=== PATIENT | male | born 1980 | race Caucasian/White ===

== ENCOUNTER 2016-10-01 02:32 | Emergency (ER) | payer MEDICAID ==
[~2016-10-01] VITALS: Ht 188 cm; Wt 84.9 kg
[2016-10-01 02:33] VITALS: BP 123/65
[2016-10-01] MEDS ORDERED: LIDOCAINE 1%, 20ML ONE (03:04)
[2016-10-01] MEDS ORDERED: LIDOCAINE 1%, 20ML SQ ONE (04:00)
== END 2016-10-01 04:20 | disposition home or self-care (01) ==
LOC: ED 03:44
DX: L02.31 Cutaneous abscess of buttock (principal)
CPT/HCPCS: 10061

== ENCOUNTER 2016-12-17 03:10 | Emergency (ER) | payer MEDICAID ==
[~2016-12-17] VITALS: Ht 188 cm; Wt 87.1 kg
[2016-12-17 03:10] VITALS: BP 115/73
[2016-12-17] MEDS ORDERED: LIDOCAINE 1%, 20ML INFIL ONE (03:30)
[2016-12-17] MEDS ORDERED: LIDOCAINE 1%, 20ML ONE (04:05)
== END 2016-12-17 04:38 | disposition home or self-care (01) ==
LOC: ED 03:40
DX: L03.312 Cellulitis of back [any part except buttock and flank] (principal); L03.116 Cellulitis of left lower limb; L02.416 Cutaneous abscess of left lower limb; L02.212 Cutaneous abscess of back [any part, except buttock and flank]; Z87.891 Personal history of nicotine dependence
CPT/HCPCS: 10060

== ENCOUNTER 2016-12-25 13:03 | Emergency (ER) | payer MEDICAID ==
[~2016-12-25] VITALS: Ht 188 cm; Wt 80.0 kg
[2016-12-25] MEDS ORDERED: BACITRACIN ZINC OINT 500U/GM, 0.9 GM ONE (14:07)
[2016-12-25 15:28] VITALS: BP 104/65
== END 2016-12-25 15:30 | disposition home or self-care (01) ==
LOC: ED 13:22
DX: L01.01 Non-bullous impetigo (principal); L02.31 Cutaneous abscess of buttock; L05.01 Pilonidal cyst with abscess; Z59.0 Homelessness; F17.200 Nicotine dependence, unspecified, uncomplicated
CPT/HCPCS: 99283

== ENCOUNTER 2017-05-13 09:29 | Emergency (ER) | payer MEDICAID ==
[~2017-05-13] VITALS: Ht 188 cm; Wt 89.6 kg
[2017-05-13 09:42] VITALS: BP 125/75
[2017-05-13] MEDS ORDERED: LIDOCAINE-MPF 1%, 5ML INFIL ONE (10:30)
== END 2017-05-13 11:04 | disposition home or self-care (01) ==
LOC: ED 10:55
DX: L02.212 Cutaneous abscess of back [any part, except buttock and flank] (principal)
CPT/HCPCS: 10060; 99283

== ENCOUNTER 2018-09-03 22:31 | Emergency (ER) | payer MEDICAID ==
[~2018-09-03] VITALS: Ht 188 cm; Wt 88.2 kg
[2018-09-03 22:38] VITALS: BP 122/74
[2018-09-03] MEDS ORDERED: LIDOCAINE 1%, 10ML INFIL ONE (23:30)
[2018-09-03] MEDS ORDERED: DIPH,PERTUSS(ACELL),TET VAC/PF 0.5 ML IM-VACC ONE (23:30)
--- NOTE | 2018-09-04 | NUR ---
R HAND DOG BITE SUTURED BY LILI MCLEOD. DRESSING APPLIED. TDAP GIVEN.
== END 2018-09-04 00:18 | disposition home or self-care (01) ==
LOC: ED 23:34
DX: S61.411A Laceration without foreign body of right hand, initial encounter (principal); W54.0XXA Bitten by dog, initial encounter; Y93.89 Activity, other specified; Y92.009 Unspecified place in unspecified non-institutional (private) residence as the place of occurrence of the external cause; Y99.8 Other external cause status
CPT/HCPCS: 12042; 73130; 90471; 90715; 99284; J3490

== ENCOUNTER 2018-10-05 16:04 | Emergency (ER) | payer MEDICAID ==
[~2018-10-05] VITALS: Ht 188 cm; Wt 87.0 kg
[2018-10-05 16:09] VITALS: BP 120/68
== END 2018-10-05 17:03 | disposition home or self-care (01) ==
LOC: ED 17:01
DX: M25.522 Pain in left elbow (principal)
CPT/HCPCS: 29105; 73080; 96372; 99283; J1885

== ENCOUNTER 2020-04-06 23:27 | Emergency (ER) | payer MEDICAID ==
[~2020-04-06] VITALS: Ht 188 cm; Wt 91.0 kg
--- NOTE | 2020-04-06 23:56 | NUR ---
pt came into ed tonight due to dental pain and swelling of cheek on the left lower cheek. area is noticably swollen, pt denies trauma or vision involvement. resting in gurney, bed in lowest, rails engaged, call light on lap, provided warm blankets for comfort, nad wctm.
[2020-04-07] MEDS ORDERED: AMOXICILLIN 500 MG CAPSULE PO STA (00:27)
[2020-04-07] MEDS ORDERED: OXYcodone/APAP 5/325MG TABLET PO ONE (00:30)
[2020-04-07] MEDS ORDERED: AMOXICILLIN 500 MG CAPSULE ONE (00:47)
[2020-04-07] MEDS ORDERED: OXYcodone/APAP 5/325MG TABLET ONE (00:47)
[2020-04-07] MEDS ORDERED: LIDOCAINE-MPF 1%, 2ML ONE (00:51)
[2020-04-07] MEDS ORDERED: LIDOCAINE 1%, 2ML INFIL ONE (01:00)
--- NOTE | 2020-04-07 01:00 | NUR ---
late entry d/t pt care: pt medicated per mar, nad, no change in condition, denies additional needs at this time, bed in lowest, rails engaged, call light on lap, wctm.
[2020-04-07 01:22] VITALS: BP 115/84
== END 2020-04-07 01:34 | disposition home or self-care (01) ==
LOC: ED 23:45
DX: K04.7 Periapical abscess without sinus (principal); M79.89 Other specified soft tissue disorders
CPT/HCPCS: 41800; 99284